=== PATIENT | female | born 1970 | race Two or more races ===

== ENCOUNTER 2016-03-15 12:42 | Emergency (ER) | payer MEDICAID ==
[~2016-03-15] VITALS: Ht 152.4 cm; Wt 74.8 kg
[~2016-03-15 12:42] MED LIST: IBUP-51 PO
[2016-03-15] MEDS ORDERED: MORPHINE SULFATE INJ 2 MG/ML DISP.SYRIN ONE (13:12)
[2016-03-15] MEDS ORDERED: diphenhydrAMINE HCL 50 MG/ML VIAL ONE (13:13)
[2016-03-15] MEDS ORDERED: METOCLOPRAMIDE HCL 10 MG/2 ML VIAL ONE (13:13)
[2016-03-15] MEDS ORDERED: IV NS 0.9% 1,000 ML ONE (13:13)
[2016-03-15] MEDS ORDERED: IV SET PRIMARY PUMP SET 1 EA INFUS.SET MC ONE (13:13)
[2016-03-15] MEDS ORDERED: IV NS 0.9% 1,000 ML BAG IV ONE (13:30)
[2016-03-15] MEDS ORDERED: METOCLOPRAMIDE HCL 10 MG/2 ML VIAL IV ONE (13:30)
[2016-03-15] MEDS ORDERED: MORPHINE SULFATE INJ 2 MG/ML DISP.SYRIN IV ONE (13:30)
[2016-03-15] MEDS ORDERED: diphenhydrAMINE HCL 50 MG/ML VIAL IV ONE (13:30)
[2016-03-15 13:32] LABS: BASOPHILS # (AUTO) 0.3 /CMM (0.0-0.2); BASOPHILS % (AUTO) 2.5 % (0.0-2.0); DIFF TOTAL % 100 %; EOSINOPHILS % (AUTO) 0.1 % (0.0-6.0); HEMATOCRIT 42 % (33-45); HEMOGLOBIN 13.5 g/dL (11.5-14.8); LYMPHOCYTES # (AUTO) 0.9 /CMM (0.8-4.8); LYMPHOCYTES % (AUTO) 7.4 % (20.0-44.0); MEAN CORPUSCULAR HEMOGLOBIN 28 PG (26.0-33.0); MEAN CORPUSCULAR HGB CONC 33 g/dl (31.0-36.0); MEAN CORPUSCULAR VOLUME 85 fL (82-100); MONOCYTES # (AUTO) 0.4 /CMM (0.1-1.30); MONOCYTES % (AUTO) 3.3 % (2.0-12.0); NEUTROPHILS # (AUTO) 10.3 /CMM (1.8-8.9); NEUTROPHILS % (AUTO) 86.7 % (43.0-81.0); PLATELET COUNT (AUTO) 244 /CMM (150-450); RED BLOOD CELL COUNT(AUTO) 4.86 MIL/uL (4.0-5.2); WHITE BLOOD COUNT (AUTO) 11.9 K/uL (4.3-11.0)
[2016-03-15 13:43] LABS: CREATININE 0.6 mg/dL (0.6-1.3); POTASSIUM 3.6 mmol/L (3.5-5.1)
[2016-03-15 13:47] LABS: INR 0.96 (0.87-1.13); PROTHROMBIN TIME 10.1 SECS (9.5-12.7)
[2016-03-15 13:49] LABS: ALBUMIN 4.1 g/dL (3.4-5.0); BILIRUBIN,DIRECT 0.1 mg/dL (0.0-0.2); BILIRUBIN,TOTAL 0.5 mg/dL (0.2-1.0); INDIRECT BILIRUBIN 0.4 mg/dL (0.0-1.1); TOTAL PROTEIN, SERUM 8.4 g/dL (6.4-8.2)
[2016-03-15] MEDS ORDERED: KETOROLAC TROMETHAMINE INJ 30 MG/ML VIAL ONE (14:30)
[2016-03-15] MEDS ORDERED: KETOROLAC TROMETHAMINE INJ 30 MG/ML VIAL IV ONE (14:30)
[2016-03-15 14:42] VITALS: BP 104/60
== END 2016-03-15 14:43 | disposition home or self-care (01) ==
LOC: ER 12:43
DX: R51 Headache (principal); R11.2 Nausea with vomiting, unspecified; R79.1 Abnormal coagulation profile; Z90.49 Acquired absence of other specified parts of digestive tract
CPT/HCPCS: 36415; 70450; 80048; 80076; 85025; 85730; 96361; 96374; 96375; 99285; A4606; J1200; J1885; J2270; J2765; J7030; Z7610

== ENCOUNTER 2016-10-19 04:04 | Inpatient (IN) | payer MEDICAID ==
[~2016-10-19] VITALS: Ht 154.9 cm; Wt 78.0 kg
--- NOTE | 2016-10-19 04:20 | NUR ---
to bed 4 ambulatory c/o abdominal pain with n/v x3 days. pt aaox4 no acute distress noted, resp even and unlabored. urine sample collected and sent to lab.pending er md patel.
--- NOTE | 2016-10-19 04:24 | NUR ---
spenser batista at bedside to amanda valdes.
[2016-10-19] MEDS ORDERED: IV NS 0.9% 500 ML BAG IV ONE (04:30)
[2016-10-19] MEDS ORDERED: MORPHINE SULFATE INJ 2 MG/ML DISP.SYRIN IV ONE (04:30)
[2016-10-19] MEDS ORDERED: ONDANSETRON HCL/PF 4 MG/2 ML VIAL IVP ONE (04:30)
[2016-10-19] MEDS ORDERED: ONDANSETRON HCL/PF 4 MG/2 ML VIAL ONE (04:44)
[2016-10-19] MEDS ORDERED: MORPHINE SULFATE INJ 4 MG/ML DISP.SYRIN ONE (04:44)
[2016-10-19 05:00] LABS: BASOPHILS % (AUTO) 0.3 % (0.0-2.0); EOSINOPHILS % (AUTO) 0.2 % (0.0-6.0); HEMATOCRIT 40 % (33-45); HEMOGLOBIN 13.5 g/dL (11.5-14.8); LYMPHOCYTES # (AUTO) 0.7 /CMM (0.8-4.8); LYMPHOCYTES % (AUTO) 6.4 % (20.0-44.0); MEAN CORPUSCULAR HEMOGLOBIN 29 PG (26.0-33.0); MEAN CORPUSCULAR HGB CONC 34 g/dl (31.0-36.0); MEAN CORPUSCULAR VOLUME 85 fL (82-100); MONOCYTES # (AUTO) 0.4 /CMM (0.1-1.30); MONOCYTES % (AUTO) 3.2 % (2.0-12.0); NEUTROPHILS # (AUTO) 10.2 /CMM (1.8-8.9); NEUTROPHILS % (AUTO) 89.9 % (43.0-81.0); PLATELET COUNT (AUTO) 217 /CMM (150-450); RDW COEFFICIENT OF VARIATION 12.8 (11.5-15.0); RED BLOOD CELL COUNT(AUTO) 4.74 MIL/uL (4.0-5.2); WHITE BLOOD COUNT (AUTO) 11.3 K/uL (4.3-11.0)
[2016-10-19 05:01] LABS: APPEARANCE,URINE SL CLOUDY (CLEAR); BILIRUBIN,URINE NEGATIVE (NEGATIVE); BLOOD, URINE TRACE-INTA Ery/uL (NEGATIVE); COLOR,URINE YELLOW (YELLOW); KETONES,URINE TRACE (NEGATIVE); LEUKOCYTE ESTERASE ,URINE NEGATIVE (NEGATIVE); NITRITE, URINE NEGATIVE (NEGATIVE); PH,URINE 5.5 (5.0-8.0); PROTEIN,URINE NEGATIVE (NEGATIVE); UGLUCOSE NEGATIVE (NEGATIVE); UROBILINOGEN,URINE 0.2 EU/dL (0.2)
[2016-10-19 05:16] LABS: CALCIUM, SERUM 8.9 mg/dL (8.5-10.1); CARBON DIOXIDE 27 mmol/L (21-32); CHLORIDE 101 mmol/L (98-107); CREATININE 0.8 mg/dL (0.6-1.3); GLUCOSE 126 mg/dL (74-106); POTASSIUM 3.5 mmol/L (3.5-5.1); SODIUM SERUM 137 mmol/L (136-145); UREA NITROGEN, BLOOD 13 mg/dL (7-18)
[2016-10-19 05:17] LABS: BACTERIA,URINE Rare /HPF (None Seen); RBC,URINE 0-2 /HPF (0-2); SQUAMOUS EPITHELIAL CELL,UR Few /HPF (None Seen); WBC,URINE 0-2 /HPF (0-3)
[2016-10-19 05:22] LABS: ALANINE AMINOTRANSFERASE 24 U/L (12-78); ALBUMIN 4.2 g/dL (3.4-5.0); ALKALINE PHOSPHATASE 115 U/L (46-116); ASPARTATE AMINOTRANSFERASE 19 U/L (15-37); BILIRUBIN,DIRECT 0.1 mg/dL (0.0-0.2); BILIRUBIN,TOTAL 0.7 mg/dL (0.2-1.0); LIPASE 104 U/L (73-393); TOTAL PROTEIN, SERUM 8.5 g/dL (6.4-8.2)
[2016-10-19 05:26] LABS: TROPONIN I < 0.017 ng/mL (0.00-0.056)
--- NOTE | 2016-10-19 05:39 | NUR ---
pt transported to radiology for ct abd/pelvis.
--- NOTE | 2016-10-19 05:50 | NUR ---
pt back from radiology. pending ct abd/pelvis result.
--- NOTE | 2016-10-19 06:26 | NUR ---
spenser batista spoke to [facility] regarding pt admission.
[2016-10-19] MEDS ORDERED: PIPERACILLIN /TAZOBACTAM 3.375 G in IV D5W 50 ML IV ONE (06:30)
--- NOTE | 2016-10-19 06:30 | NUR ---
er spoke to pt and pt family member regaridng ct abd/pelvis result.
[2016-10-19] MEDS ORDERED: PIPERACILLIN /TAZOBACTAM 3.375 G VIAL IV ONE (06:33)
--- NOTE | 2016-10-19 06:37 | NUR ---
Report called to [facility]. pending hospital admission.
--- NOTE | 2016-10-19 06:39 | NUR ---
OANH DEL RIO spoke to dr. Prema Resendiz regarding pt admission.
[2016-10-19] MEDS ORDERED: ACETAMINOPHEN 325 MG TABLET PO PRN (07:00)
[2016-10-19] MEDS ORDERED: MORPHINE SULFATE INJ 2 MG/ML DISP.SYRIN IV PRN (07:00)
[2016-10-19] MEDS ORDERED: ONDANSETRON HCL/PF 4 MG/2 ML VIAL IVP PRN (07:00)
--- NOTE | 2016-10-19 07:54 | NUR ---
Rn Initial/Admission note Rn received new ER admission no report given . patient hx provided per patient and daughter patient is Kyrgyz speaking, states she arrive to the er at 3am with abdominal pain and discomfort in addition to 3-4 bowel movement no diarrhea noted. pt hx includes gall stones cholecystectomy, and issues with anesthesia. patient states no pain, nausea , vomiting or discomfort at this time. states she was given Zofran and morphine in the emergency department. patient skin clean dry intact, no SOB NOTED, left ac [address] DAUGTHER AT BESIDE. surgery contacted nurse stating to prep patient for emergency surgery at 0800 am per MD Lloyd, form sign and surgical procedure explained to patient and daughter , information provided about the schedule procedure. patient and daughter acknowledged understanding. Rn will continue to follow.
[2016-10-19] MEDS ORDERED: BUPIVACAINE MPF W/EPI 0.25% 30 ML VIAL ONE (08:16)
[2016-10-19] MEDS ORDERED: LIDOCAINE 0.5% HCL 50 ML VIAL ONE (08:16)
[2016-10-19 08:24] LABS: MAGNESIUM 1.8 mg/dL (1.8-2.4); PHOSPHORUS 3.4 mg/dL (2.5-4.9)
[2016-10-19] MEDS ORDERED: MIDAZOLAM HCL 2 MG/2ML VIAL ONE (08:50)
[2016-10-19] MEDS ORDERED: FENTANYL PF 100MCG/2ML AMPUL ONE (08:51)
[2016-10-19] MEDS ORDERED: ROCURONIUM BROMIDE 50 MG/5 ML ONE (08:51)
[2016-10-19 09:00] VITALS: BP 98/54
[2016-10-19] MEDS ORDERED: FAMOTIDINE/PF INJ 20 MG/2 ML VIAL IV SCH (09:00)
[2016-10-19] MEDS: PANTOPRAZOLE 40 MG TABLET.DR PO SCH (10:00)
--- NOTE | 2016-10-19 10:35 | NUR ---
RN NOTE PATIENT RETURED FROM SURGERY ALERT AND ORIENTED, NO SOB NOTED. HOWEVER PATIENT COMPLAINING OF THROAT PAIN FROM THE [facility] DURING SURGERY. RN WILL CONTINUE TO ASSESS FOR PAIN AND SWELLING. ALSO PATIENT COMPLAINTS OF NO ABDOMINAL PAIN AT THIS TIME VITALS ASSESSED B/P 97/64 PULSE 58 TEMP 97.6 O2 98% ON ROOM AIR. DAUGHTER IN ROOM WITH PATIENT NOT COMPLAINTS OR ISSUES ARISED RN WILL CONTINUE TO MONITOR AND FOLLOW THE PATIENTS PROGRESS
[2016-10-19] MEDS: PIPERACILLIN /TAZOBACTAM 3.375 G in IV D5W 50 ML IV SCH ×3 (12:25→23:53)
[2016-10-19] MEDS: IV NS 0.9% 1,000 ML IV PRN (12:27)
[2016-10-19] MEDS ORDERED: PIPERACILLIN /TAZOBACTAM 4.5 G in IV D5W 50 ML IV SCH (13:00)
[2016-10-19 17:00] VITALS: BP 119/60
--- NOTE | 2016-10-19 19:27 | NUR ---
RN CLOSING NOTE PATIENT STABLE THROUGHOUT SHIFT , NO SOB OR PAIN NOTED , PATIENT HAD MINOR BLEEDING FROM THREE SURGICAL SITES CLEASES WITH NS AND PAT DRY APPLIED GAUZE FOR POSSIBLE CONTINUES BLEEDING . DAUGHTER AT BED SIDE NO FURTHER ISSUES CONTINUATION OF CARE ENDORSED TO PM RN.
[2016-10-19 20:00] VITALS: BP 106/59
[2016-10-19 20:26] LABS: APPEARANCE,URINE CLEAR (CLEAR); BILIRUBIN,URINE NEGATIVE (NEGATIVE); BLOOD, URINE NEGATIVE Ery/uL (NEGATIVE); COLOR,URINE YELLOW (YELLOW); KETONES,URINE NEGATIVE (NEGATIVE); LEUKOCYTE ESTERASE ,URINE NEGATIVE (NEGATIVE); NITRITE, URINE NEGATIVE (NEGATIVE); PROTEIN,URINE NEGATIVE (NEGATIVE); UGLUCOSE NEGATIVE (NEGATIVE); UROBILINOGEN,URINE 0.2 EU/dL (0.2)
[2016-10-19] MEDS: HYDROCODONE/APAP 5/325MG 1 EACH TABLET PO PRN (21:18)
--- NOTE | 2016-10-19 22:15 | NUR ---
RN INITIAL MED SURGE NOTE RECEIVED PATIENT S/P APPENDECTOMY AT THIS TIME , NO SOB OR PAIN NOTED , PATIENT HAD MINOR BLEEDING FROM THREE SURGICAL SITES CLEANSE WITH NS AND PAT DRY APPLIED GAUZE FOR POSSIBLE CONTINUES BLEEDING . DAUGHTER AT BED SIDE ALL NEEDS MET.
[2016-10-20 04:00] VITALS: BP 106/59
[2016-10-20] MEDS: HYDROCODONE/APAP 5/325MG 1 EACH TABLET PO PRN ×4 (04:58→23:29)
[2016-10-20] MEDS: IV NS 0.9% 1,000 ML IV PRN (04:58)
[2016-10-20] MEDS: PIPERACILLIN /TAZOBACTAM 3.375 G in IV D5W 50 ML IV SCH ×4 (05:00→23:29)
--- NOTE | 2016-10-20 06:11 | NUR ---
RN CLOSING MED SURGE NOTE ENDORSED PATIENT S/P APPENDECTOMY AT THIS TIME , NO SOB C/O OF ABD PAIN NORCO Q6H GIVEN ORDERED TWICE WITH EFFECT , PATIENT HAD MINOR BLEEDING FROM THREE SURGICAL SITES CLEANSE WITH NS AND PAT DRY APPLIED GAUZE FOR POSSIBLE CONTINUES BLEEDING . DAUGHTER AT BED SIDE ALL NEEDS MET.
[2016-10-20 06:48] LABS: CALCIUM, SERUM 8.2 mg/dL (8.5-10.1); CREATININE 0.6 mg/dL (0.6-1.3); POTASSIUM 3.9 mmol/L (3.5-5.1)
[2016-10-20 06:55] LABS: BASOPHILS % (AUTO) 0.1 % (0.0-2.0); HEMATOCRIT 36 % (33-45); HEMOGLOBIN 12.1 g/dL (11.5-14.8); LYMPHOCYTES # (AUTO) 0.8 /CMM (0.8-4.8); LYMPHOCYTES % (AUTO) 7.5 % (20.0-44.0); MEAN CORPUSCULAR HEMOGLOBIN 29 PG (26.0-33.0); MEAN CORPUSCULAR HGB CONC 34 g/dl (31.0-36.0); MEAN CORPUSCULAR VOLUME 85 fL (82-100); MONOCYTES # (AUTO) 0.5 /CMM (0.1-1.30); MONOCYTES % (AUTO) 4.6 % (2.0-12.0); NEUTROPHILS # (AUTO) 9.1 /CMM (1.8-8.9); NEUTROPHILS % (AUTO) 87.8 % (43.0-81.0); PLATELET COUNT (AUTO) 193 /CMM (150-450); RDW COEFFICIENT OF VARIATION 12.7 (11.5-15.0); RED BLOOD CELL COUNT(AUTO) 4.15 MIL/uL (4.0-5.2); WHITE BLOOD COUNT (AUTO) 10.4 K/uL (4.3-11.0)
--- NOTE | 2016-10-20 07:12 | NUR ---
MS RN INITIAL NOTES: REC'D PT AWAKE ON BED, A/O X 4, C/O PAIN AT THE SURGICAL SITE (ABDOMEN), 07/12. OFFERED PAIN MEDICATION BUT PT VERBALIZED THAT SHE IS OKAY FOR NOW W/O PAIN MEDS. HAS LAC G20 PL PATENT & INTACT W/ NS AT 75 CC/HR INFUSING WELL, NO S/SX OF INFECTION/ INFILTRATION NOTED. S/P APPENDECTOMY W/ CLEAN, DRY & INTACT DRESSING. ENCOURAGED TO USE INCENTIVE SPIROMETER. PROVIDED COMFORT & SAFETY MEASURES. CALL LIGHT PLACED W/IN REACH. BED KEPT LOW & IN LOCKED POS. WILL CONTINUE TO MONITOR.
[2016-10-20 08:00] VITALS: BP 110/63
[2016-10-20] MEDS: PANTOPRAZOLE 40 MG TABLET.DR PO SCH (08:10)
[2016-10-20] MEDS ORDERED: HYDR-552 PO (09:03)
[2016-10-20] MEDS ORDERED: AMOX-430 PO (09:05)
--- NOTE | 2016-10-20 09:05 | NUR ---
RN NOTES: PT SEEN & EXAMINED BY DR. REAL. CLEARED PT FOR DC IN PM IF PT TOLERATES LUNCH AND IF OKAY W/ DR. BAUER. Addendum: 10/20/16 at 1116 by KITA MENDOZA RN ADDENDUM: MADE ERROR. DISREGARD ENTRY.
--- NOTE | 2016-10-20 11:07 | NUR ---
DC ORDER BY DR. REAL CANCELLED PER DR. REAL ITS EPIC GROUP PATIENT.DR. BRYANT BAUER ADVANCE DIET TO REGULAR.
--- NOTE | 2016-10-20 11:45 | NUR ---
RN NOTES: REC'D CALL FROM DR. LLOYD W/ ORDERS TO CARRY OUT DC ORDERS OF DR. REAL.
--- NOTE | 2016-10-20 12:00 | NUR ---
RN NOTES: PT C/O MILD PAIN AFTER EATING HER LUNCH. ADVISED PT TO EAT SLOWLY. PT VERBALIZED UNDERSTANDING.
--- NOTE | 2016-10-20 13:00 | NUR ---
RN NOTES: PT SEEN & EXAMINED BY DR. John BAUER CENTRAL OFFICE FRAME WIRER SALMA. ALL CONCERNS OF THE PT & DAUGHTER WAS ADDRESSED BY SALMA. PER SALMA OKAY TO BE DC TO HOME AND OKAY TO DO DRESSING CHANGE PRIOR TO DC.
[2016-10-20 16:00] VITALS: BP 119/54
--- NOTE | 2016-10-20 17:00 | NUR ---
RN NOTES: DC INSTRUCTIONS AND DOCUMENTS GIVEN TO THE PT W/ DAUGHTER AT BEDSIDE. PT AND DAUGHTER VERBALIZED UNDERSTANDING.
--- NOTE | 2016-10-20 18:10 | NUR ---
RN NOTES: PT C/O SEVERE ABDOMINAL PAIN 10/10 RADIATING TO HER BACK. SHE VERBALIZED THAT SHE IS HAVING THE SAME PAIN THAT SHE HAD WHEN SHE GOT ADMITTED IN THE HOSPITAL. LEFT VM TO DR. NESTOR BAUER. AWAITING FOR RESPONSE.
--- NOTE | 2016-10-20 18:41 | NUR ---
PATIENT C/O ABDOMINAL PAIN 12/12 POST DINNER,AWAITS DR.SAMUEL BAUER,DR. LLOYD NOTIFIED PER MD HOLD DISCHARGE FOR NOW UNTIL CLEAR AGAIN BY SURGEON.DR. MATTHEW NOTIFIED AWAITS RESPONSE.
--- NOTE | 2016-10-20 18:54 | NUR ---
MS RN CLOSING NOTES: PT VERBALIZED THAT HER ABDOMINAL PAIN SUBSIDED TO 4/10. REFUSED MORPHINE IV WHILE SHE WAS HAVING 10/[address] NESTOR BAUER UPDATED ABOUT PT'S CONDITION, AWAITING RESPONSE IF HE WANTED TO HOLD DC FOR NOW. IV ACCESS ON L AC G20 KEPT PATENT & INTACT W/ NS X 75 CC/HR INFUSING WELL. KEPT WELL RESTED. NEEDS ATTENDED. DAUGHTER AT BEDSIDE. CALL LIGHT PLACED W/IN REACH. WILL ENDORSE TO PM RN FOR ALIYA AT THIS TIME & RESPONSE OF DR. BAUER.
[2016-10-20 20:00] VITALS: BP 105/56
--- NOTE | 2016-10-20 20:03 | NUR ---
RN INITIAL NOTE RECEIVED PT IN NO ACUTE DISTRESS IN BED. PT IS A/O X 4 AND ABLE TO MAKE NEEDS KNOWN. PT FAMILY IS AT BEDSIDE. PT IS ON RA AND TOLERATING WELL WITH O2 SAT @ 98%. PT NOT C/O ANY SOB, DIFFICULTY BREATHING, BUT IS C/O ABD PAIN @ 4/10. PAIN MANAGEMENT INITIATED. PT HAS LAC 20G THAT IS CLEAN DRY INTACT AND PATENT WITH NS @ 75 ML/HR. BED IN LOW LOCK POSITION WITH RIALS UP X 2. CALL LIGHT WITHIN REACH AND ALL SAFETY MEASURES ENSURED AND CARRIED OUT. WILL CONTINUE TO MONITOR PT.
[2016-10-21 04:00] VITALS: BP 94/38
[2016-10-21] MEDS: IV NS 0.9% 1,000 ML IV PRN (04:50)
[2016-10-21] MEDS: HYDROCODONE/APAP 5/325MG 1 EACH TABLET PO PRN (05:45)
[2016-10-21] MEDS: PIPERACILLIN /TAZOBACTAM 3.375 G in IV D5W 50 ML IV SCH ×3 (05:45→17:07)
--- NOTE | 2016-10-21 06:45 | NUR ---
RN CLOSING NOTE PT REMAINS IN NO ACUTE DISTRESS IN BED. PT DID NOT HAVE ANY SIGNIFICANT CHANGE IN CONDITION DURING SHIFT. ALL NEEDS MET, ALL ORDERS CARRIED OUT. WILL ENDORSE CARE TO AM RN FOR CONTINUITY OF CARE.
--- NOTE | 2016-10-21 07:10 | NUR ---
MS RN INITIAL NOTES: REC'D PT AWAKE ON BED, A/O X 4, DENIES PAIN/ DISCOMFORT AT THIS TIME. ON ROOM AIR, NO SOB NOTED. HAS LAC G20 PL PATENT & INTACT W/ NS AT 75 CC/HR INFUSING WELL, NO S/SX OF INFECTION/ INFILTRATION NOTED. S/P APPENDECTOMY W/ CLEAN, DRY & INTACT DRESSING. ENCOURAGED TO USE INCENTIVE SPIROMETER. PROVIDED COMFORT & SAFETY MEASURES. CALL LIGHT PLACED W/IN REACH. BED KEPT LOW & IN LOCKED POS. WILL CONTINUE TO MONITOR.
[2016-10-21 08:00] VITALS: BP 91/40
[2016-10-21] MEDS: PANTOPRAZOLE 40 MG TABLET.DR PO SCH (08:07)
--- NOTE | 2016-10-21 11:00 | NUR ---
RN NOTES: PER DR. LLOYD, OKAY FOR PT TO BE DC HOME TODAY. CARRY OUT THE SAME DC ORDERS OF DR. REAL FROM YESTERDAY. PT INFORMED.
--- NOTE | 2016-10-21 13:00 | NUR ---
RN NOTES: PER DR. NESTOR RODRIGUEZ TO BE DC TO HOME TODAY.
[2016-10-21 16:00] VITALS: BP 107/63
--- NOTE | 2016-10-21 18:36 | NUR ---
MS CABLE STRETCHER AND TESTER NOTES: PT DC'D TO HOME, SELF CARE ORDERED. CLEARED BY DR. NESTOR BAUER. DC DOCUMENTS & INSTRUCTIONS PROVIDED TO THE PT W/ DAUGHTER AT BEDSIDE. IV ACCESS REMOVED, PRESSURE DRESSING APPLIED, NO S/SX OF INFECTION NOTED. ID BAND REMOVED. PT IS AMBULATORY. ALL NEEDS ATTENDED AND MET. NO CONCERNS UPON DC. SURGICAL SITE S/P APPENDECTOMY WERE CLEAN AND DRY W/ NO S/SX OF INFECTION. ALL BELONGINGS W/ PT. DC PAPERWORKS SIGNED BY PT. PT LEFT FACILITY IN STABLE CONDITION ACCOMPANIED BY DAUGHTER AND FOUNDER CHAIRMAN AND CHIEF CREATIVE OFFICER VIA WHEELCHAIR.
== END 2016-10-21 18:35 | disposition home or self-care (01) | DRG 225 ==
LOC: ER 04:14 → MEDSG1 06:48
PROVIDERS: ADMIT Nurse Practitioner Acute Care; ATTEND Nurse Practitioner Acute Care
PROC: 0DTJ4ZZ Resection of Appendix, Percutaneous Endoscopic Approach (ICD-10-PCS; principal; 2016-10-19 09:15)
DX: K35.80 Unspecified acute appendicitis (principal); E66.01 Morbid (severe) obesity due to excess calories; Z90.49 Acquired absence of other specified parts of digestive tract; Z68.32 Body mass index [BMI] 32.0-32.9, adult; R73.9 Hyperglycemia, unspecified
CPT/HCPCS: 36415; 71250-TC; 80048-TC; 80076-TC; 81000-TC; 83690-TC; 83735-TC; 84100-TC; 84484-TC; 84703-TC; 85025-TC; 86850-TC; 87040-TC; 87081-TC; 87086-TC; 88304-TC; 88305-TC; A4606; A6402; J1100; J1885; J2250; J2270; J2405; J2543; J2710; J3010; J3490; J7030; J7040; J7060; Z7610

== ENCOUNTER 2016-11-18 22:59 | Emergency (ER) | payer MEDICAID ==
[~2016-11-18] VITALS: Ht 149.9 cm; Wt 75.7 kg
[~2016-11-18 22:59] MED LIST changes: +AMOX-430 PO; +HYDR-552 PO; -IBUP-51 PO
--- NOTE | 2016-11-18 23:10 | NUR ---
PATIENT TO ED DT GL[facility]. PATIENT IS COMPLAING OF LOWER BACK PAIN, 7/10, ACHING, NON RADIATING. DENIES KO,. NO DIZZINESS PRIOR FALL. PATIENT APPEARS IN NO APPARENT DISTRESS. RESPIRATION EVEN AND UNLABORED. SKIN IS WARM TO TOUCH AND NON DIAPHORETIC. AFEBRILE. VSS
--- NOTE | 2016-11-18 23:39 | NUR ---
PATIENT LEFT FOR RADIOLOGY FOR XRAY OF LUMBAR SPINE
--- NOTE | 2016-11-18 23:45 | NUR ---
PATIENT RETURNED FROM RADIOLOGY
[2016-11-19] MEDS ORDERED: HYDROCODONE/APAP 5/325MG 1 EACH TABLET ONE (00:08)
[2016-11-19 00:19] VITALS: BP 116/78
[2016-11-19] MEDS ORDERED: HYDROCODONE/APAP 5/325MG 1 EACH TABLET PO ONE (00:30)
== END 2016-11-19 00:25 | disposition home or self-care (01) ==
LOC: ER 23:00
DX: S30.0XXA Contusion of lower back and pelvis, initial encounter (principal); Z90.49 Acquired absence of other specified parts of digestive tract; W19.XXXA Unspecified fall, initial encounter; Y93.89 Activity, other specified; Y92.89 Other specified places as the place of occurrence of the external cause; Y99.8 Other external cause status
CPT/HCPCS: 72110; 99284; A4606; A6403; Z7610

== ENCOUNTER → 2021-07-09 | Emergency (ER) | payer MEDICAID, OTHER ==
[~2021-07-09] VITALS: Ht 152.4 cm; Wt 77.1 kg
[~2021-07-09] MED LIST changes: +HYDR-4384 PO; -HYDR-552 PO; +TRIA80OI TP; +predniSONE 20 MG TABLET ONE; +predniSONE 20 MG TABLET PO ONE
--- NOTE | 2021-07-09 14:35 | NUR ---
pt came in c/o rash and red bumps on her legs and back starting yesterday.
[2021-07-09 15:25] VITALS: BP 126/80
--- NOTE | 2021-07-09 15:27 | NUR ---
Patient discharged to home in stable condition. RX,Written and verbal after care instructions given. Patient verbalizes understanding of instruction.
== END | disposition home or self-care (01) ==
LOC: ER 14:28
DX: R21 Rash and other nonspecific skin eruption (principal); Z87.19 Personal history of other diseases of the digestive system; Z90.89 Acquired absence of other organs; Z90.49 Acquired absence of other specified parts of digestive tract; Z79.899 Other long term (current) drug therapy
CPT/HCPCS: 99282; J7512

== ENCOUNTER 2021-08-31 00:13 | Emergency (ER) | payer OTHER ==
[~2021-08-31] VITALS: Ht 149.9 cm; Wt 72.6 kg
[~2021-08-31 00:13] MED LIST changes: -predniSONE 20 MG TABLET ONE; -predniSONE 20 MG TABLET PO ONE
[2021-08-31 00:29] VITALS: BP 149/80
[2021-08-31] MEDS ORDERED: HYDR453. TP (00:31)
== END 2021-08-31 00:40 | disposition home or self-care (01) ==
LOC: ER 00:19
DX: L25.9 Unspecified contact dermatitis, unspecified cause (principal); R10.30 Lower abdominal pain, unspecified; Z90.49 Acquired absence of other specified parts of digestive tract; Z90.89 Acquired absence of other organs; Z79.899 Other long term (current) drug therapy